=== PATIENT | male | born 1945 | race Caucasian/White ===

== ENCOUNTER 2017-06-22 00:56 | Emergency (ER) | payer OTHER ==
[~2017-06-22] VITALS: Ht 177.8 cm; Wt 66.1 kg
[~2017-06-22 00:56] MED LIST: ASCA500 PO; CHOL100010 PO
[2017-06-22 00:59] VITALS: TEMP 36.3; Ht 177.8 cm; Wt 66.1 kg
[2017-06-22] MEDS ORDERED: HYDROmorphone INJ 1 MG/ML SYR IV STA (01:29)
[2017-06-22] MEDS ORDERED: ONDANSETRON INJ 2 MG/ML 2 ML VIAL IV STA (01:29)
[2017-06-22] MEDS ORDERED: SODIUM CHLORIDE 0.9% 1000ML 1,000 ML IV STA (01:29)
[2017-06-22] MEDS ORDERED: SODIUM CHLORIDE 0.9% 500ML 500 ML IV STA (01:29)
[2017-06-22 02:06] LABS: BASO % 0.3 %; BASO ABS # 0.04 K/uL (0-0.2); COMPLETE YES; HEMATOCRIT 46.7 % (42-52); IG% 0.2 %; LYMPH % 14.8 %; LYMPH ABS # 1.86 K/uL (1.2-3.4); MEAN CELL VOLUME 94.2 fL (80-100); MEAN CORPUSCULAR HEMOGLOBIN 32.9 pg (25-34); MEAN CORPUSCULAR HGB CONC 34.9 g/dl (32-36); MEAN PLATELET VOLUME 9.5 fL (7.4-10.4); MONO % 5.5 %; NEUT % 76.2 %; PLATELET COUNT 236 K/uL (130-400); RED BLOOD COUNT 4.96 M/uL (4.7-6.1); WHITE BLOOD COUNT 12.53 K/uL (4.8-10.8)
[2017-06-22 02:13] LABS: INR 1.1 (0.9-1.1); PROTHROMBIN TIME (PATIENT) 11.4 SECONDS (9.0-12.0)
[2017-06-22] MEDS ORDERED: MoRPHine SULFATE 2 MG/ML CARP IV STA (02:19)
[2017-06-22 02:24] LABS: BUN/CREATININE RATIO 16.4 (10-20); CALCIUM 8.8 mg/dl (8.5-10.1); CREATININE 1.3 mg/dl (0.60-1.40); MAGNESIUM 2.2 mg/dl (1.8-2.4); POTASSIUM 3.8 mmol/L (3.5-5.1)
[2017-06-22 02:50] LABS: URINE APPEARANCE CLEAR (CLEAR); URINE BILIRUBIN NEG (NEG); URINE COLOR YELLOW; URINE NITRITE NEG (NEG); URINE SPECIFIC GRAVITY 1.026 (1.000-1.030); UROBILINOGEN NEG (NEG); ZZUR CULT IF INDIC CLEAN CATCH NO
[2017-06-22 02:53] LABS: MANUAL MICROSCOPIC REQUIRED? NO; REVIEW REQ? NO
--- NOTE | 2017-06-22 03:32 | EMERGENCY ROOM VISIT NOTE ---
History Report prepared by Percy: Elizabeth Rapp Under the Supervision of: Dr. Mei Beyer M.D. First contact with patient: 01:19 Chief Complaint: FLANK PAIN Stated Complaint: KIDNEY PAIN History of Present Illness The patient is a 71 year old male who presents to the Emergency Room with complaints of worsening flank pain starting 2300 today. He describes the pain as an ache. He currently rates his discomfort as an 8/10. He has a history of kidney stones 30 years ago. His current pain is dissimilar to his previous kidney stone pain which was sharp. He reports intermittent nausea. He denies any vomiting, hematuria, or changes in bowel movement. He is unsure of fever. He denies any chronic medical problems and is not on any medications. He denies any alcohol use. He does smoke 0.5 ppd. He is adopted and does not know his family history. Source of History: patient Onset: 2299 today Position: other (flank) Symptom Intensity: 8/10 Quality: ache Timing: worsening Associated Symptoms: + nausea, No vomiting, No urinary symptoms Note: Pt denies hematuria, changes in bowel movement. Review of Systems See HPI for pertinent positives & negatives. A total of 10 systems reviewed and were otherwise negative. Past Medical & Surgical Medical Problems: (1) Bilateral inguinal hernia Family History Not obtainable due to adoption Social History Smoking Status: Current Every Day Smoker Marital Status: Occupation Status: employed Current/Historical Medications No Active Prescriptions or Reported Meds Allergies Coded Allergies: No Known Allergies (Unverified , 06/22/17) Physical Exam Vital Signs Date Time Temp Pulse Resp B/P (MAP) Pulse Ox O2 Delivery O2 Flow Rate FiO2 06/22/17 03:42 59 160/71 98 06/22/17 02:06 60 20 173/78 97 Room Air 06/22/17 00:59 36.3 60 20 150/78 94 Room Air Physical Exam Vital signs reviewed. General: Well-appearing male, in no significant distress. HEENT: No scleral icterus, PERRLA, neck supple. Atraumatic. Cardiovascular: Regular rate and rhythm, no extra sounds. Pulmonary: Clear to auscultation bilaterally, normal work of breathing. Abdomen: Soft, nontender, nondistended, positive bowel sounds. Musculoskeletal: Atraumatic, no peripheral edema. CVA tenderness bilaterally. Neurologic: Patient awake alert and oriented x 3 Skin: Warm, dry, no rash Medical Decision & Procedures ER Provider Diagnostic Interpretation: Radiology results as stated below per my review and [facility] radiologist interpretation: CT abdomen & pelvis: There is a punctate 2 mm stone at the left UVJ causing mild left hydroureteronephrosis. Nonobstructive stones are seen within the right kidney. There is thickening of the bladder wall, may be due to incomplete distension or cystitis versus chronic outlet obstruction secondary to enlarged prostate. Correlate with clinical findings and lab values. Diverticulosis. Normal appendix. Increased fecal burden. Laboratory Results 06/22/17 01:50 Red Blood Count 4.96, Mean Corpuscular Volume 94.2, Mean Corpuscular Hemoglobin 32.9, Mean Corpuscular Hemoglobin Concent 34.9, Mean Platelet Volume 9.5, Neutrophils (%) (Auto) 76.2, Lymphocytes (%) (Auto) 14.8, Monocytes (%) (Auto) 5.5, Eosinophils (%) (Auto) 3.0, Basophils (%) (Auto) 0.3, Neutrophils # (Auto) 9.54, Lymphocytes # (Auto) 1.86, Monocytes # (Auto) 0.69, Eosinophils # (Auto) 0.38, Basophils # (Auto) 0.04 06/22/17 01:50 Test 06/22/17 01:30 06/22/17 01:50 Urine Color YELLOW Urine Appearance CLEAR (CLEAR) Urine pH 5.0 (4.5-7.5) Urine Specific [place] 1.026 (1.000-1.030) Urine Protein NEG (NEG) Urine Glucose (UA) NEG (NEG) Urine Ketones NEG (NEG) Urine Occult Blood 3+ (NEG) Urine Nitrite NEG (NEG) Urine Bilirubin NEG (NEG) Urine Urobilinogen NEG (NEG) Urine Leukocyte Esterase NEG (NEG) Urine WBC (Auto) 1-5 /hpf (0-5) Urine RBC (Auto) >30 /hpf (0-4) Urine Hyaline Casts (Auto) 1-5 /lpf (0-5) Urine Epithelial Cells (Auto) 5-10 /lpf (0-5) Urine Bacteria (Auto) NEG (NEG) White Blood Count 12.53 K/uL (4.8-10.8) Red Blood Count 4.96 M/uL (4.7-6.1) Hemoglobin 16.3 g/dL (14.0-18.0) Hematocrit 46.7 % (42-52) Mean Corpuscular Volume 94.2 fL (80-100) Mean Corpuscular Hemoglobin 32.9 pg (25-34) Mean Corpuscular Hemoglobin Concent 34.9 g/dl (32-36) Platelet Count 236 K/uL (130-400) Mean Platelet Volume 9.5 fL (7.4-10.4) Neutrophils (%) (Auto) 76.2 % Lymphocytes (%) (Auto) 14.8 % Monocytes (%) (Auto) 5.5 % Eosinophils (%) (Auto) 3.0 % Basophils (%) (Auto) 0.3 % Neutrophils # (Auto) 9.54 K/uL (1.4-6.5) Lymphocytes # (Auto) 1.86 K/uL (1.2-3.4) Monocytes # (Auto) 0.69 K/uL (0.11-0.59) Eosinophils # (Auto) 0.38 K/uL (0-0.5) Basophils # (Auto) 0.04 K/uL (0-0.2) RDW Standard Deviation 44.6 fL (36.4-46.3) RDW Coefficient of Variation 12.8 % (11.5-14.5) Immature Granulocyte % (Auto) 0.2 % Immature Granulocyte # (Auto) 0.02 K/uL (0.00-0.02) Prothrombin Time 11.4 SECONDS (9.0-12.0) Prothromb Time International Ratio 1.1 (0.9-1.1) Activated Partial Thromboplast Time 24.7 SECONDS (21.0-31.0) Partial Thromboplastin Ratio 1.0 Anion Gap 5.0 mmol/L (3-11) Est Creatinine Clear Calc Drug Dose 49.4 ml/min Estimated GFR () 64.1 Estimated GFR (Non- 55.3 BUN/Creatinine Ratio 16.4 (10-20) Calcium Level 8.8 mg/dl (8.5-10.1) Magnesium Level 2.2 mg/dl (1.8-2.4) Total Bilirubin 0.8 mg/dl (0.2-1) Direct Bilirubin 0.2 mg/dl (0-0.2) Aspartate Amino Transf (AST/SGOT) 18 U/L (15-37) Alanine Aminotransferase (ALT/SGPT) 33 U/L (12-78) Alkaline Phosphatase 79 U/L (45-117) Total Protein 7.2 gm/dl (6.4-8.2) Albumin 3.9 gm/dl (3.4-5.0) Laboratory results per my review. Medications Administered Medications (Trade) Dose Ordered Sig/[place] Route Start Time Stop Time Status Last Admin Dose Admin Sodium Chloride 500 ml @ 999 mls/hr Q31M STAT IV 06/22/17 01:29 06/22/17 01:59 DC 06/22/17 02:21 999 MLS/HR Sodium Chloride 1,000 ml @ 150 mls/hr Q6H40M STAT IV 06/22/17 01:29 06/22/17 04:14 DC 06/22/17 02:21 150 MLS/HR Acetaminophen/ Hydrocodone Bitart ([place] 5/325mg Home Pack) 1 homepack UD ONCE PO 06/22/17 03:45 06/22/17 03:46 DC 06/22/17 03:42 1 HOMEPACK ED Course 0123: The patient was evaluated by the student at this time. We discussed findings, differentials, and treatment plan. 0129: NSS 1000 ml @ 150 mls/hr IV, NSS 500 ml @ 999 mls/hr IV. 0135: Past medical records reviewed. The patient was evaluated in room B5. A complete history and physical examination was performed. 0311: Upon reevaluation, the patient appeared to have improvement of his symptoms. I discussed findings with him. He verbalized agreement of the treatment plan. He was discharged home. Medical Decision Differential diagnosis: Etiologies such as renal colic, appendicitis, diverticulitis, mesenteric ischemia, aortic pathology, infections, inflammatory bowel disease, PUD, biliary pathology, UTI, as well as others were entertained. This patient was evaluated and appeared to be in some discomfort. He refused any analgesic medications. Laboratory work was obtained and is fairly unrevealing. The patient had a CT scan of the abdomen and pelvis which confirms a 2 mm stone at the left UVJ. Patient was discharged with a home pack of [place]. He is advised to use ibuprofen as needed for less severe pain. He will drink plenty of clear fluids and follow-up with his PCP this week for reevaluation. He will seek urologic consultation if pain persists. Patient will return to the ER for worsening of symptoms or any medical concerns. Medication Reconcilliation Current Medication List: was personally reviewed by me Blood Pressure Screening Patient's blood pressure: Elevated blood pressure Blood pressure disposition: Elevated BP felt to be situational Impression Primary Impression: Renal colic Scribe Attestation The scribe's documentation has been prepared under my direction and personally reviewed by me in its entirety. I confirm that the note above accurately reflects all work, treatment, procedures, and medical decision making performed by me. Departure Information Dispostion Home / Self-Care Prescriptions No Active Prescriptions or Reported Meds Referrals Gucci Sanders M.D. Forms HOME CARE DOCUMENTATION FORM, IMPORTANT VISIT INFORMATION Patient Instructions My [facility] Additional Instructions Diagnosis: Renal colic, 2 mm ureteral stone on the left Ibuprofen 600 mg every 6 hours as needed for pain with food. Tylenol 650 mg every 6 hours as needed for pain. Drink plenty of clear fluids. Follow-up with your physician this week for reevaluation. He may need urologic consultation. Return to the ER for worsening of symptoms or any medical concerns.
[2017-06-22 03:42] VITALS: BP 160/71; PULSE 59; O2SAT 98
[2017-06-22] MEDS ORDERED: NORCO 5/325MG HOME PACK PO ONE (03:45)
--- NOTE | 2017-06-22 07:17 | DIAGNOSTIC IMAGING REPORT ---
CT OF THE ABDOMEN AND PELVIS WITHOUT CONTRAST CLINICAL HISTORY: Bilateral flank pain. Evaluate for kidney stones. COMPARISON STUDY: No previous studies for comparison. TECHNIQUE: Axial images of the abdomen and pelvis were obtained without IV contrast. Images were reviewed in the axial, sagittal, and coronal planes. A dose lowering technique was utilized adhering to the principles of ALARA. FINDINGS: A 3 mm left ureterovesical junction calculus results in mild to moderate left hydronephrosis. There is mild left perinephric and periureteral infiltration. Several right renal calculi measure up to 4 mm. Visualized portions of the lower lungs demonstrate moderate emphysema. Evaluation of the abdomen and pelvis is suboptimal on this unenhanced exam. Unenhanced images of liver, spleen, adrenal glands and pancreas are normal. There is no biliary or pancreatic ductal dilatation. There is no evidence for a bowel obstruction. There is colonic diverticulosis without evidence for acute diverticulitis. Prostate is moderately enlarged. Bladder wall thickening is noted. The appendix is normal. There is no ascites. There are no suspicious osseous lesions. IMPRESSION: 1. 3 mm left ureterovesical junction calculus which results in mild to moderate left hydronephrosis. 2. Right-sided nephrolithiasis. 3. Moderate enlargement of the prostate. Bladder wall thickening, accentuated by underdistention. Electronically signed by: Shawn Delarosa M.D. 06/22/2017 7:15 AM Dictated Date/Time: 06/22/2017 7:08 AM
== END 2017-06-22 03:43 | disposition home or self-care (01) ==
LOC: C.EDB 00:57
DX: N23 Unspecified renal colic (principal); R10.9 Unspecified abdominal pain; R11.0 Nausea